=== PATIENT | female | born 1940 | race Caucasian/White ===

== ENCOUNTER 2017-09-02 00:46 | Emergency (ER) | payer MEDICAID ==
--- NOTE | 2017-09-02 01:25 | ER ---
DATE SEEN: 09/02/2017 CHIEF COMPLAINT: Wavy vision. HISTORY OF PRESENT ILLNESS: This is a 76-year-old female who complains of a period of an hour where she felt dizzy and had visual disturbance of the left eye. She describes seeing distorted lines that she described as wavy. There was a mild headache at that time and lightheadedness, but this lasted about an hour. She had been busy in [place] most of the day. She further complains of intermittent diarrhea and palpitations on and off for several months and attributes this to anxiety. PAST MEDICAL HISTORY: She is otherwise healthy with the exception of macular degeneration, age-related. ALLERGIES: No known allergies. CURRENT MEDICATIONS: She no medications. PHYSICAL EXAMINATION: VITAL SIGNS: She has a normal pulse and temperature is 97.6, blood pressure 158/87. HEAD: Normal size. EYES: Pupils are equal. No apparent pupil defect. NECK: Supple with no JVD or carotid bruits. CHEST: Clear. CARDIOVASCULAR: S1, S2 normal. NEUROLOGIC: Normal with no focal deficits at all. IMPRESSION: 1. Macular degeneration. 2. Elevated blood pressure without hypertension. 3. Lightheadedness. PLAN: Based on the findings, I do not feel there is any further testing needed on an emergent basis. I recommended that she follow up on Sunday with PCP or to return with any worsening symptoms. /[id number] MUSTAPHA/GENA
[2017-09-02] MEDS ORDERED: Acetaminophen 325 MG Tab PO ONE (01:30)
== END 2017-09-02 01:40 | disposition home or self-care (01) ==
LOC: FB.ED 00:46
DX: H35.30 Unspecified macular degeneration (principal); R03.0 Elevated blood-pressure reading, without diagnosis of hypertension; R42 Dizziness and giddiness
CPT/HCPCS: 99283; A9270